=== PATIENT | male | born 1955 | race Caucasian/White ===

== ENCOUNTER 2016-08-30 21:01 | Emergency (ER) | payer OTHER ==
[~2016-08-30 21:01] MED LIST: DEPO-TESTOS200 MG/M1 IM; FISH-EPA1000 MG PO; PRILOSEC OTC20 MG PO; VITC500 PO; ZIAC5 PO; ZINC PO
== END 2016-08-30 22:32 | disposition home or self-care (01) ==
LOC: ER 21:01
PROC: 0HQGXZZ Repair Left Hand Skin, External Approach (ICD-10-PCS; principal; 2016-08-30)
DX: S61.215A Laceration without foreign body of left ring finger without damage to nail, initial encounter (principal); I10 Essential (primary) hypertension; K21.9 Gastro-esophageal reflux disease without esophagitis; Z79.899 Other long term (current) drug therapy; Y28.8XXA Contact with other sharp object, undetermined intent, initial encounter
CPT/HCPCS: 90471; 90714; 99283